=== PATIENT | female | born 1940 | race African-American/Black ===

== ENCOUNTER 2018-01-09 12:49 | Emergency (ER) | payer MEDICARE, OTHER ==
[~2018-01-09] VITALS: Ht 154.9 cm; Wt 98.9 kg
[2018-01-09] MEDS ORDERED: Ampicillin/Sulbactam Sod 3 GM in NS 110 ML IVPB ONE (13:45)
--- NOTE | 2018-01-09 14:00 | Emergency Room Report ---
History of Present Illness General Chief Complaint: Vaginal lesion Source: Patient Present Illness HPI Patient is a 77-year-old female who presented after increased generalized weakness as well as increased blister to the right lower genital area. Patient had reported having increased pain to the perineal area. She had not been having any fever. She reports having increased generalized weakness. Patient states that she had previous he had a bone marrow biopsy due to anemia. Patient was previously seen at [facility]. Allergies: Coded Allergies: No Known Allergies (Unverified , 01/09/18) Patient History Past Medical History: see triage record Reviewed Nursing Documentation: PMH: Agreed; PSxH: Agreed Nursing Documentation-PMH Hx Cardiac Problems: Yes - Anemia, CHF Hx Hypertension: Yes Hx Neurological Problems: No - Arthritis Physical Exam Vital Signs Date Time Temp Pulse Resp B/P (MAP) Pulse Ox O2 Delivery O2 Flow Rate FiO2 01/09/18 13:08 99.3 99 18 121/59 97 Room Air Sp02 EP Interpretation: reviewed, normal General Appearance: normal inspection, alert, Chronically Ill Head: atraumatic Eyes: bilateral eye conjunctivae pale ENT: hearing grossly normal, normal voice Neck: normal inspection, full range of motion, supple, no bony tend Respiratory: normal inspection, lungs clear, normal breath sounds, no respiratory distress, no retraction, no wheezing Cardiovascular #1: regular rate, rhythm, no edema Gastrointestinal: normal inspection, normal bowel sounds, non tender, soft, no guarding, no hernia Genitourinary: other - midline ulceration to vulvar area, right inguinal lesion small no erythema Musculoskeletal: normal inspection, back normal, normal range of motion Neurologic: normal inspection, alert, responsive, speech normal Psychiatric: normal inspection, judgement/insight normal, mood/affect normal Skin: no rash, other - vulvar skin ulcer Medical Decision Making Diagnostic Impression: Primary Impression: Anemia Additional Impression: Vaginal ulcer ER Course Patient presented for vaginal lesion. Differential diagnosis included was not limited to the metastatic cancer, abscess, chancre, anemia among others. The patient noted have evidence of the anemia. She appears to be somewhat pale. The patient was noted to have some evidence of the infection and will be given IV Rocephin. The patient's laboratory testing was notable for significant anemia which will likely require transfusion.Patient noted to be having no active bleeding. The patient appears to have some evidence of infection. The patient was started on IV antibiotics.The patient was noted to be thrombocytopenic.The patient will likely require further inpatient workup. Labs Test 01/09/18 14:10 White Blood Count 8.8 K/UL (4.8-10.8) Red Blood Count 2.48 M/UL (4.20-5.40) Hemoglobin 5.9 G/DL (12.0-16.0) Hematocrit 19.1 % (37.0-47.0) Mean Corpuscular Volume 77 FL (80-99) Mean Corpuscular Hemoglobin 24.0 PG (27.0-31.0) Mean Corpuscular Hemoglobin Concent 31.2 G/DL (32.0-36.0) Red Cell Distribution Width 20.5 % (11.6-14.8) Platelet Count 29 K/UL (150-450) Mean Platelet Volume 5.4 FL (6.5-10.1) Neutrophils (%) (Auto) % (45.0-75.0) Lymphocytes (%) (Auto) % (20.0-45.0) Monocytes (%) (Auto) % (1.0-10.0) Eosinophils (%) (Auto) % (0.0-3.0) Basophils (%) (Auto) % (0.0-2.0) Prothrombin Time 11.7 SEC (9.30-11.50) Prothromb Time International Ratio 1.1 (0.9-1.1) Activated Partial Thromboplast Time 25 SEC (23-33) Urine Color Yellow Urine Appearance Slightly cloudy Urine pH 5 (4.5-8.0) Urine Specific [place] 1.015 (1.005-1.035) Urine Protein 2+ (NEGATIVE) Urine Glucose (UA) Negative (NEGATIVE) Urine Ketones Negative (NEGATIVE) Urine Blood 1+ (NEGATIVE) Urine Nitrite Negative (NEGATIVE) Urine Bilirubin Negative (NEGATIVE) Urine Urobilinogen Normal MG/DL (0.0-1.0) Urine Leukocyte Esterase 2+ (NEGATIVE) Sodium Level 140 MMOL/L (136-145) Potassium Level 4.4 MMOL/L (3.5-5.1) Chloride Level 108 MMOL/L (98-107) Carbon Dioxide Level 22 MMOL/L (21-32) Anion Gap 10 mmol/L (5-15) Blood Urea Nitrogen 16 mg/dL (7-18) Creatinine 1.2 MG/DL (0.55-1.30) Estimat Glomerular Filtration Rate mL/min (>60) Glucose Level 121 MG/DL (74-106) Calcium Level 8.8 MG/DL (8.5-10.1) Total Bilirubin 0.8 MG/DL (0.2-1.0) Aspartate Amino Transf (AST/SGOT) 40 U/L (15-37) Alanine Aminotransferase (ALT/SGPT) 13 U/L (12-78) Alkaline Phosphatase 77 U/L (46-116) Total Protein 8.1 G/DL (6.4-8.2) Albumin 2.7 G/DL (3.4-5.0) Globulin 5.4 g/dL Albumin/Globulin Ratio 0.5 (1.0-2.7) Last Vital Signs Date Time Temp Pulse Resp B/P (MAP) Pulse Ox O2 Delivery O2 Flow Rate FiO2 01/09/18 13:08 99.3 99 18 121/59 97 Room Air Status: unchanged Disposition: XFER T-TRM HOSP Condition: Serious Valente Gutierres MD Jan 09, 2018 14:00
[2018-01-09 14:22] LABS: HEMATOCRIT 19.1 % (37.0-47.0); MEAN CORPUSCULAR VOLUME 77 FL (80-99); PLATELET COUNT 29 K/UL (150-450); RED BLOOD COUNT 2.48 M/UL (4.20-5.40); RED CELL DISTRIBUTION WIDTH 20.5 % (11.6-14.8); WHITE BLOOD COUNT 8.8 K/UL (4.8-10.8)
[2018-01-09 14:27] LABS: APPEARANCE,URINE SLIGHTLY CLOUDY; BILIRUBIN, URINE NEGATIVE (NEGATIVE); GLUCOSE, URINE (UA) NEGATIVE (NEGATIVE); KETONES,URINE NEGATIVE (NEGATIVE); LEUKOCYTE ESTERASE ,URINE 2+ (NEGATIVE); NITRITE,URINE NEGATIVE (NEGATIVE); PH,URINE 5 (4.5-8.0); PROTEIN,URINE 2+ (NEGATIVE); UROBILINOGEN,URINE NORMAL MG/DL (0.0-1.0)
[2018-01-09 14:28] LABS: INR 1.1 (0.9-1.1)
[2018-01-09 14:29] LABS: ANION GAP 10 mmol/L (5-15); BLOOD UREA NITROGEN 16 mg/dL (7-18); CALCIUM 8.8 MG/DL (8.5-10.1); CARBON DIOXIDE 22 MMOL/L (21-32); CHLORIDE 108 MMOL/L (98-107); CREATININE 1.2 MG/DL (0.55-1.30); POTASSIUM 4.4 MMOL/L (3.5-5.1); SODIUM 140 MMOL/L (136-145)
[2018-01-09 14:30] LABS: COLOR,URINE YELLOW; HEMOGLOBIN 5.9 G/DL (12.0-16.0)
[2018-01-09 14:34] LABS: ALANINE AMINOTRANSFERASE 13 U/L (12-78); ALBUMIN 2.7 G/DL (3.4-5.0); ALBUMIN/GLOBULIN RATIO 0.5 (1.0-2.7); ALKALINE PHOSPHATASE 77 U/L (46-116); ASPARTATE AMINO TRANSFERASE 40 U/L (15-37); BILIRUBIN,TOTAL 0.8 MG/DL (0.2-1.0)
[2018-01-09 14:46] VITALS: BP 118/47
[2018-01-09 16:25] VITALS: BP 115/54
[2018-01-09 18:38] VITALS: BP 112/68
[2018-01-09 19:24] VITALS: BP 115/64
--- NOTE | 2018-01-11 11:55 | Cardiology Report ---
APPROVED REPORT EKG Measurement Heart [id number] Normal sinus rhythm Cannot rule out Anterior infarct, age undetermined Abnormal ECG
== END 2018-01-09 19:27 | disposition short-term general hospital (02) ==
LOC: EMR 13:43
DX: N76.5 Ulceration of vagina (principal); D64.9 Anemia, unspecified; I10 Essential (primary) hypertension; I50.9 Heart failure, unspecified
CPT/HCPCS: 36415; 80053; 81001; 85007; 85025; 85610; 85730; 86850; 86900; 86901; 86920; 87086; 93005; 96365; 99285; J0295